=== PATIENT | male | born 1960 | race African-American/Black ===

== ENCOUNTER 2018-12-10 16:48 | Emergency (ER) | payer BC, OTHER ==
[2018-12-10 16:57] VITALS: BP 159/110; PULSE 93; TEMP 97.6; BMI 35.9
--- NOTE | 2018-12-10 17:13 | PDOC ---
Attending Attestation - Resident Resident Name: Sacha Mcnulty - ED Attending Attestation I have performed the following: I have examined & evaluated the patient, The case was reviewed & discussed with the resident, I agree w/resident's findings & plan, Exceptions are as noted - HPI HPI: 12/10/18 17:10 4-year-old male history of coronary artery disease hypertension here today complaining of laceration to his left thumb. Was cutting slipped Maria Teresa cut his left thumb. Happened just prior to arrival bleeding was controlled with pressure . last tetanus is unknown. does not take any current blood thinners no new numbness or tingling pain is mild 12/10/18 17:25 - Physicial Exam PE: 12/10/18 17:11 Awake alert no acute distress lungs are clear bilaterally heart is regular without any murmurs rubs or gallops. Left upper extremity demonstrates a laceration there is a superficial and deeper flap to the dorsal fat pad of the thumb it is partially 2.5 cm in length bleeding is controlled with pressure distally the patient is neurovascularly intact. The flexion and extension at the IP joint is fully intact 5 out of 5 - Medical Decision Making 12/10/18 17:12 Patient will require sutures to his hand he was given anesthesia local lidocaine block. Soaked clean the wound was examined for foreign bodies there were none sutures placed discharge home with warning signs for infection suture removal in 7-10 days
[2018-12-10] MEDS ORDERED: DIPHTH,PERTUSS(ACELL),TET 0.5 ML DISP.SYRIN IM ONE ×2 (17:25→17:30)
--- NOTE | 2018-12-10 17:29 | PDOC ---
History of Present Illness - General Chief Complaint: Injury Stated Complaint: LEFT THUMB LAC Time Seen by Provider: 12/10/18 17:09 History Source: Patient Exam Limitations: No Limitations - History of Present Illness Initial Comments: 12/10/18 17:24 Patient is a 58M with history of CAD and HTN here today with a laceration to his left lateral aspect of his thumb. He states that he was cutting bread with a clean knife. Injury happened two hours prior to arrival. No blood thinners. Unknown last tetanus. Past History - Past Medical History Allergies/Adverse Reactions: Allergies Allergy/AdvReac Type Severity Reaction Status Date / Time No Known Allergies Allergy Verified 12/10/18 16:49 Home Medications: Ambulatory Orders Amlodipine Besylate 03/06/15 Hctz - 03/06/15 Lisinopril 03/06/15 Metoprolol Tartrate 03/06/15 Cardiac Disorders: Yes COPD: No - Surgical History Cardiac Surgery: Yes (3 STENTS) - Immunization History Immunization Up to Date: No - Suicide/Smoking/Psychosocial Hx Smoking History: Never smoked Have you smoked in the past 12 months: No Information on smoking cessation initiated: No Hx Alcohol Use: No Drug/Substance Use Hx: No Substance Use Type: None Review of Systems - Review of Systems Able to Perform ROS?: Yes Comments:: 12/10/18 17:26 GENERAL/CONSTITUTIONAL: No fever or chills. No weakness. CARDIOVASCULAR: No chest pain or shortness of breath RESPIRATORY: No cough, wheezing, or hemoptysis. GASTROINTESTINAL: No nausea, vomiting, diarrhea or constipation. MUSCULOSKELETAL: +R Thumb pain. No neck or back pain. SKIN: No rash NEUROLOGIC: No headache, vertigo, loss of consciousness, or change in strength/ sensation. HEMATOLOGIC/LYMPHATIC: No anemia, easy bleeding, or history of blood clots. ALLERGIC/IMMUNOLOGIC: No hives or skin allergy. *Physical Exam - Vital Signs Last Vital Signs Temp Pulse Resp BP Pulse Ox 97.6 F 93 H 20 159/110 H 96 12/10/18 16:49 12/10/18 16:49 12/10/18 16:49 12/10/18 16:49 12/10/18 16:49 - Physical Exam Comments: 12/10/18 17:27 GENERAL: Awake, alert, and fully oriented, in no acute distress R THUMB: 3 cm laceration to lateral left thumb. Neurovascularly intact. No foreign body appreciated. HEAD: No signs of trauma, normocephalic, atraumatic EYES: PERRLA, EOMI, sclera anicteric, conjunctiva clear ENT: Auricles normal inspection, hearing grossly normal, nares patent, oropharynx clear without exudates. Moist mucosa NECK: Normal ROM, supple, no lymphadenopathy, JVD, or masses LUNGS: No distress, speaks full sentences, clear to auscultation bilaterally HEART: Regular rate and rhythm, normal S1 and S2, no murmurs, rubs or gallops, peripheral pulses normal and equal bilaterally. NEUROLOGICAL: Cranial nerves II through XII grossly intact. Normal speech, normal gait, no focal sensorimotor deficits SKIN: Warm, Dry, normal turgor, no rashes or lesions noted. Moderate Sedation - Procedure Monitoring Vital Signs: Procedure Monitoring Vital Signs Temperature 97.6 F 12/10/18 16:49 Pulse Rate 93 H 12/10/18 16:49 Respiratory Rate 20 12/10/18 16:49 Blood Pressure 159/110 H 12/10/18 16:49 O2 Sat by Pulse Oximetry (%) 96 12/10/18 16:49 Procedures - Laceration/Wound Repair Left 1st digit Wound Length: 2.6 to 5.0 cm Wound Explored: clean, no foreign body present Wound's Depth, Shape: superficial, linear Irrigated w/ Saline: Yes Betadine Prep: No Anesthesia: 1% Lidocaine Amount of Anesthetic (ccs): 5 (digital nerve block) Wound Repaired With: Sutures Suture Size/Type: 5:0, nylon Number of Sutures: 7 Layer Closure: No Sterile Dressing Applied: Yes Splint Applied: No Sling Applied: No Progress: 12/10/18 17:29 Tolerated without complication Medical Decision Making - Medical Decision Making 12/10/18 17:28 Patient is 58M here today with laceration to thumb. Repaired as per procedure note. Tetanus updated. Given return precautions. Return in 7-10 days. *DC/Admit/Observation/Transfer Diagnosis at time of Disposition: Laceration of thumb, left - Discharge Dispostion Disposition: HOME Condition at time of disposition: Good Decision to Admit order: No - Referrals - Patient Instructions Printed Discharge Instructions: DI for Laceration Repair -- Simple Additional Instructions: Please return in 7-10 days to have your sutures removed. Please return to the ED immediately if you have any new, worsening or concerning symptoms, especially fever, discharge, pain and spreading redness. - Post Discharge Activity
== END 2018-12-10 17:40 | disposition home or self-care (01) ==
LOC: FER 16:48
PROC: 0HQGXZZ Repair Left Hand Skin, External Approach (ICD-10-PCS; principal; 2018-12-10)
PROC: 3E0234Z Introduction of Serum, Toxoid and Vaccine into Muscle, Percutaneous Approach (ICD-10-PCS; 2018-12-10)
DX: S61.012A Laceration without foreign body of left thumb without damage to nail, initial encounter (principal); W26.0XXA Contact with knife, initial encounter; Y93.89 Activity, other specified; Y92.9 Unspecified place or not applicable; I10 Essential (primary) hypertension; I25.10 Atherosclerotic heart disease of native coronary artery without angina pectoris
CPT/HCPCS: 90715; 99281-25

== ENCOUNTER 2018-12-18 20:56 | Emergency (ER) | payer BC, OTHER ==
--- NOTE | 2018-12-18 21:06 | PDOC ---
Suture Removal/Wound Check HPI - History of Present Illness History Source: Yes: Patient Exam Limitations: Yes: No Limitations - Onset of Previous Treatment Comment:: 12/18/18 21:15 A portion of this note was documented by scribe services under my direction. I have reviewed the details of the note, within reason, and agree with the documentation with the following case summary and management plan written by me. Patient treated in the ED. Nursing notes are reviewed and incorporated into the medical decision-making. Vital signs reviewed. Assessment plan: This is 4-year-old male who returns for suture removal. Sutures were placed 8 days ago. Wound does appear to be healing however patient is complaining of some increase in discomfort and he is concerned it may be getting infected. Otherwise there is no increase in warmth or erythema but well start patient on a short course of Bactrim. Sutures removed without difficulty patient tolerated well. 12/18/18 21:16 <Dhruv Whitmore I - Last Filed: 12/18/18 21:16> - History of Present Illness History Source: Yes: Patient Exam Limitations: Yes: No Limitations - Onset of Previous Treatment Comment:: 12/18/18 21:51 The patient is a 58 year old male, with a significant past medical history of CAD and HTN who presents to the emergency department today for suture removal. The patient had sutures placed 8 days ago and came in to the ED today because he thought it was getting infected. The patient notes he has increased tenderness and discomfort to his left thumb. PAST SURGICAL HISTORY: no significant history FAMILY HISTORY: no pertinent history SOCIAL HISTORY: Pt lives with family and is employed. MEDICATIONS: reviewed ALLERGIES: As per nursing notes <Yasmin Mauricio - Last Filed: 12/18/18 21:53> - History of Present Illness Chief Complaint: Suture/Staple Removal(Here) Stated Complaint: SUTURE REMOVAL LEFT THUMB Time Seen by Provider: 12/18/18 21:02 Past History - Past Medical History Cardiac Disorders: Yes COPD: No - Surgical History Cardiac Surgery: Yes (3 STENTS) - Immunization History Immunization Up to Date: No - Suicide/Smoking/Psychosocial Hx Smoking History: Never smoked Have you smoked in the past 12 months: No Hx Alcohol Use: No Drug/Substance Use Hx: No Substance Use Type: None <Dhruv Whitmore I - Last Filed: 12/18/18 21:16> <Yasmin Mauricio - Last Filed: 12/18/18 21:53> - Past Medical History Allergies/Adverse Reactions: Allergies Allergy/AdvReac Type Severity Reaction Status Date / Time No Known Allergies Allergy Verified 12/18/18 21:05 Home Medications: Ambulatory Orders Amlodipine Besylate 03/06/15 Hctz - 03/06/15 Lisinopril 03/06/15 Metoprolol Tartrate 03/06/15 Sulfamethoxazole/Trimethoprim [Bactrim DS -] 1 tab PO BID #10 tablet 12/18/18 *Review of Systems - Review of Systems Able to Perform ROS?: Yes Comments:: 12/18/18 21:52 General: No fevers or chills, no weakness, no weight loss HEENT: No change in vision. No sore throat,. No ear pain CardioVascular: No chest pain or shortness of breath Respiratory:No cough, or wheezing. Gastrointestinal: no nausea, vomiting, diarrhea or constipation, No rectal bleeding Genitourinary: No dysuria, hematuria, or frequency Musculoskeletal: No joint or muscle pain or swelling Neurologic: No headache, vertigo, dizziness or loss of consciousness Psychiatric: nor depression Skin: (+) left thumb laceration, suture removal . Endocrine: no increased thirst or abnormal weight change Allergic: no skin or latex allergy All other systems reviewed and normal All Other Systems: Reviewed and Negative <Yasmin Mauricio - Last Filed: 12/18/18 21:53> *Physical Exam - Vital Signs Last Vital Signs Temp Pulse Resp BP Pulse Ox 98.1 F 75 16 142/100 99 12/18/18 20:58 12/18/18 20:58 12/18/18 20:58 12/18/18 20:58 12/18/18 20:58 - Physical Exam Comments: 12/18/18 21:52 General: Well-nourished well-developed individual, no acute distress HEENT: Throat: Normal, tonsils normal, no erythema or exudate Neck: Supple, no meningeal signs, no lymphadenopathy Eyes::Pupils equal reactive and round, extraocular motion intact Chest: Nontender to palpation Cardiac: S1-S2 normal, regular rate and rhythm, no murmurs rubs or gallops Respiratory: Lungs clear to auscultation bilateral Abdomen: Soft, nondistended, normal bowel sounds, nontender to palpation diffusely Extremities: Warm, dry, no cyanosis, clubbing, or edema Skin: (+) left thumb healing laceration. (+) tenderness to palpation over wound. No increase in warmth. No erythema. No discharge to wound margins. Neuro: Alert and oriented x3, nonfocal exam, grossly intact, normal gait Psych: Normal mood and affect <Yasmin Mauricio - Last Filed: 12/18/18 21:53> Moderate Sedation - Procedure Monitoring Vital Signs: Procedure Monitoring Vital Signs Temperature 98.1 F 12/18/18 20:58 Pulse Rate 75 12/18/18 20:58 Respiratory Rate 16 12/18/18 20:58 Blood Pressure 142/100 12/18/18 20:58 O2 Sat by Pulse Oximetry (%) 99 12/18/18 20:58 <Yasmin Mauricio - Last Filed: 12/18/18 21:53> *DC/Admit/Observation/Transfer - Discharge Dispostion Decision to Admit order: No <Dhruv Whitmore I - Last Filed: 12/18/18 21:16> - Attestations Scribe Attestion: 12/18/18 21:53 Documentation prepared by Yasmin Mauricio, acting as medical collections for Dhruv Whitmore MD <Yasmin Mauricio - Last Filed: 12/18/18 21:53> Diagnosis at time of Disposition: Visit for suture removal - Discharge Dispostion Disposition: HOME Condition at time of disposition: Good - Prescriptions Prescriptions: Sulfamethoxazole/Trimethoprim [Bactrim DS -] 1 tab PO BID #10 tablet - Patient Instructions Additional Instructions: Take Bactrim 1 tablet twice a day for 5 days. Wear a Band-Aid over the laceration if you are doing things and will cause tension to the wound margins as the wound margins are still soft and can be torn apart with tension or stress on them. Return to the emergency department immediately with ANY new, persistent or worsening symptoms. Continue any medications as previously prescribed by your physician. You should follow up with your primary doctor as soon as possible regarding today's emergency department visit. . Please make sure your doctor reviews the results of your emergency evaluation. Thank you for coming to the Emergency Department today for your care. It was a pleasure to see you today. Please note that your evaluation is INCOMPLETE until you follow-up with your doctor.
[2018-12-18] MEDS ORDERED: SULFAMETHOXAZOLE/TRIMETHOPRIM 800MG/160MG D.S. TABLET PO ONE (21:17)
[2018-12-18] MEDS ORDERED: SULFAMETHOXAZOLE/TRIMETHOPRIM 800MG/160MG D.S. TABLET ONE (21:20)
[2018-12-18 21:22] VITALS: BP 142/100; PULSE 75; TEMP 98.1; BMI 35.8
== END 2018-12-18 21:24 | disposition home or self-care (01) ==
LOC: FER 20:56
DX: Z48.02 Encounter for removal of sutures (principal)
CPT/HCPCS: 99281-25